=== PATIENT | female | born 1955 | race Caucasian/White ===

== ENCOUNTER 2017-05-07 09:38 | Emergency (ER) | payer OTHER ==
[~2017-05-07] VITALS: Ht 165.1 cm; Wt 56.7 kg
[~2017-05-07 09:38] MED LIST: ACETAMINOPHEN; ALBIPROI INH; ALBU90OI INH; AZIT250 PO; Bactrim 400-801 EACH PO; CLIN150 PO; CODACE30; CODGUAEL PO; DIAZ10 PO; DIAZ5 PO; HYDACE5 PO; HYDCOR2.5C PR; Hydrocodone-Ap1 EA23 PO; IBUPROFEN; NAPR500 PO; OXYC10TA19; OXYC5; PRED20 PO; PROCODE120 PO; PROM25 PO; Prednisone20 MG PO; RXCLIN PO; RXHYDACE PO; SULTRIDS PO; TRAM50; TRAM50 PO; Vibramycin100 MG PO; Zithromax250 MG PO; Zovirax400 MG PO
[2017-05-07] MEDS ORDERED: Prednisone20 MG PO (11:52)
[2017-05-07] MEDS ORDERED: Zithromax250 MG PO (11:52)
[2018-01-15] MEDS ORDERED: ONDA8 PO (11:38)
[2018-01-15] MEDS ORDERED: HYDROCODONE-AC1 EACH PO (11:39)
[2018-01-15] MEDS ORDERED: VARE1 PO (11:40)
[2018-01-15] MEDS ORDERED: LIDOCAINE5 GM TOP (11:40)
== END 2017-05-07 12:16 | disposition home or self-care (01) ==
LOC: ER 09:38
DX: J44.1 Chronic obstructive pulmonary disease with (acute) exacerbation (principal); G89.29 Other chronic pain; M54.9 Dorsalgia, unspecified; F17.200 Nicotine dependence, unspecified, uncomplicated
CPT/HCPCS: 71046; 94640; 94644; 99283

== ENCOUNTER → 2017-05-14 | Outpatient (CLI) | payer OTHER ==
[~2017-05-14] MED LIST changes: +CARBAMIDE15 ML BOTHEARS; +Duoneb 2.5-0.5 M3 ML INH; +HYDROCODONE-AC1 EACH PO; +LIDOCAINE5 GM TOP; +ONDA8 PO; +VARE1 PO
== END ==
LOC: LAB 09:30
DX: J18.1 Lobar pneumonia, unspecified organism (principal)
CPT/HCPCS: 87015; 87116; 87206; 88108

== ENCOUNTER → 2017-07-29 | Outpatient (CLI) | payer OTHER ==
[~2017-07-29] MED LIST changes: -CARBAMIDE15 ML BOTHEARS; -Duoneb 2.5-0.5 M3 ML INH; -HYDROCODONE-AC1 EACH PO; -LIDOCAINE5 GM TOP; -ONDA8 PO; -VARE1 PO
== END ==
LOC: LAB SHORT 13:13 → LAB 13:13
DX: J44.1 Chronic obstructive pulmonary disease with (acute) exacerbation (principal)
CPT/HCPCS: 87070; 87186; 87205

== ENCOUNTER 2017-09-07 13:42 | Emergency (ER) | payer OTHER ==
[~2017-09-07] VITALS: Ht 165.1 cm; Wt 54.4 kg
[2017-09-07] MEDS ORDERED: Prednisone20 MG PO (14:29)
[2017-09-07] MEDS ORDERED: Vibramycin100 MG PO (14:29)
[2017-09-07] MEDS ORDERED: Duoneb 2.5-0.5 M3 ML INH (14:29)
[2017-09-07] MEDS ORDERED: CARBAMIDE15 ML BOTHEARS (14:32)
== END 2017-09-07 15:02 | disposition home or self-care (01) ==
LOC: ER 13:42
DX: J44.1 Chronic obstructive pulmonary disease with (acute) exacerbation (principal); F17.200 Nicotine dependence, unspecified, uncomplicated
CPT/HCPCS: 71046; 94640; 99283-25

== ENCOUNTER 2018-06-29 13:50 | Day surgery (SDC) | payer OTHER ==
[~2018-06-29 13:50] MED LIST changes: +CARBAMIDE15 ML BOTHEARS; +Duoneb 2.5-0.5 M3 ML INH; +HYDROCODONE-AC1 EACH PO; +LIDOCAINE5 GM TOP; +ONDA8 PO; +VARE1 PO
[2018-06-29 16:11] LABS: BASOPHILS ABSOLUTE AUTO 0.02 K/mm3 (0.00-0.23); BASOPHILS PERCENT AUTO 0 % (0-2); EOSINOPHILS ABSOLUTE AUTO 0.02 K/mm3 (0.00-0.68); EOSINOPHILS PERCENT AUTO 0 % (0-6); Hematocrit 38.5 % (33.0-51.0); Hemoglobin 12.1 g/dL (11.5-16.0); IMMATURE GRAN ABSOLUTE AUTO 0.01 K/mm3 (0.00-0.10); IMMATURE GRAN PERCENT AUTO 0 % (0-1); LYMPHOCYTES ABSOLUTE AUTO 1.21 K/mm3 (0.84-5.20); LYMPHOCYTES PERCENT AUTO 27 % (21-46); MONOCYTES ABSOLUTE AUTO 0.24 K/mm3 (0.16-1.47); MONOCYTES PERCENT AUTO 5 % (4-13); Mean Corpuscular HGB 29.4 pg (26.0-34.0); Mean Corpuscular HGB Conc 31.4 g/dL (31.5-36.5); Mean Corpuscular Volume 94 fL (80-100); Mean Platelet Volume 10.7 fL (9.1-12.4); NEUTROPHILS ABSOLUTE AUTO 3.06 K/mm3 (1.96-9.15); NEUTROPHILS PERCENT AUTO 67 % (41-73); Platelet Count 169 K/mm3 (150-400); RDW Coefficient Variation 12.6 % (11.7-14.2); RDW Standard Deviation 43.8 fL (35.1-46.3); Red Blood Cell Count 4.11 M/mm3 (3.80-5.20); White Blood Cell Count 4.56 K/mm3 (4.00-11.30)
[2018-06-29 16:24] LABS: Alanine Aminotransfer (ALT/SGP 17 U/L (12-78); Albumin, Blood 3.7 g/dL (3.4-5.0); Albumin/Globulin Ratio 1.1 (0.8-1.8); Alk Phos 79 U/L (50-136); Anion Gap 4 mmol/L (6-16); Aspartate Aminotrans (AST/SGOT 20 U/L (12-37); Bilirubin, Total 0.2 mg/dL (0.1-1.0); Blood Urea Nitrogen 13 mg/dL (8-24); Bun/Creatinine Ratio 19.2 (12.0-20.0); CO2, Blood 30 mmol/L (21-32); Calcium, Blood 8.7 mg/dL (8.5-10.1); Chloride, Blood 107 mmol/L (98-108); Creatinine, Blood 0.68 mg/dL (0.40-1.00); Globulin, Blood 3.3 g/dL (2.2-4.0); Glomerular Filtration Rate >60 (60-); Glucose, Blood 87 mg/dL (70-99); Potassium, Blood 3.8 mmol/L (3.5-5.5); Sodium, Blood 141 mmol/L (136-145)
== END 2018-06-29 22:57 | disposition home or self-care (01) ==
LOC: ATC 13:50
PROVIDERS: Internal Medicine Hematology & Oncology
DX: C54.8 Malignant neoplasm of overlapping sites of corpus uteri (principal); C77.0 Secondary and unspecified malignant neoplasm of lymph nodes of head, face and neck; Z87.891 Personal history of nicotine dependence; Z79.899 Other long term (current) drug therapy; Z88.0 Allergy status to penicillin
CPT/HCPCS: 36591; 80053; 85025; J1642

== ENCOUNTER → 2020-10-23 | Outpatient (CLI) | payer OTHER ==
[2020-10-24 13:11] LABS: HPV 16 Positive (Negative); HPV 18 Negative (Negative); HPV OTHER HR TYPES Negative (Negative)
== END ==
LOC: LAB SHORT 14:12 → LAB 14:12
PROVIDERS: Family Medicine
DX: Z01.419 Encounter for gynecological examination (general) (routine) without abnormal findings (principal)
CPT/HCPCS: 87624; 87625; G0123

== ENCOUNTER 2021-03-12 12:03 | Emergency (ER) | payer OTHER | END 2021-03-12 13:02 | disposition left against medical advice (07) | LOC: ER 12:03 | DX: Z53.21 Procedure and treatment not carried out due to patient leaving prior to being seen by health care provider (principal) ==

== ENCOUNTER → 2021-07-26 | Outpatient (CLI) | payer OTHER ==
[2021-07-26 13:27] LABS: BASOPHILS ABSOLUTE AUTO 0.04 K/mm3 (0.00-0.23); BASOPHILS PERCENT AUTO 1 % (0-2); EOSINOPHILS ABSOLUTE AUTO 0.04 K/mm3 (0.00-0.68); EOSINOPHILS PERCENT AUTO 1 % (0-6); Hematocrit 46.9 % (33.0-51.0); Hemoglobin 15.1 g/dL (11.5-16.0); IMMATURE GRAN ABSOLUTE AUTO 0.01 K/mm3 (0.00-0.10); IMMATURE GRAN PERCENT AUTO 0 % (0-1); LYMPHOCYTES ABSOLUTE AUTO 1.48 K/mm3 (0.84-5.20); LYMPHOCYTES PERCENT AUTO 25 % (21-46); MONOCYTES ABSOLUTE AUTO 0.27 K/mm3 (0.16-1.47); MONOCYTES PERCENT AUTO 5 % (4-13); Mean Corpuscular HGB 29.3 pg (26.0-34.0); Mean Corpuscular HGB Conc 32.2 g/dL (31.5-36.5); Mean Corpuscular Volume 91 fL (80-100); Mean Platelet Volume 11.1 fL (9.1-12.4); NEUTROPHILS ABSOLUTE AUTO 4.08 K/mm3 (1.96-9.15); NEUTROPHILS PERCENT AUTO 69 % (41-73); Platelet Count 240 K/mm3 (150-400); RDW Coefficient Variation 12.6 % (11.7-14.2); RDW Standard Deviation 41.7 fL (35.1-46.3); Red Blood Cell Count 5.15 M/mm3 (3.80-5.20); White Blood Cell Count 5.92 K/mm3 (4.00-11.30)
[2021-07-26 14:24] LABS: Alanine Aminotransfer (ALT/SGP 20 U/L (12-78); Albumin/Globulin Ratio 0.9 (0.8-1.8); Alk Phos 108 U/L (50-136); Anion Gap 6 mmol/L (6-16); Aspartate Aminotrans (AST/SGOT 24 U/L (12-37); Bilirubin, Total 0.4 mg/dL (0.1-1.0); Blood Urea Nitrogen 13 mg/dL (8-24); Bun/Creatinine Ratio 26.9 (12.0-20.0); CO2, Blood 29 mmol/L (21-32); Calcium, Blood 9.4 mg/dL (8.5-10.1); Chloride, Blood 103 mmol/L (98-108); Cholesterol 187 mg/dL (50-200); Creatinine, Blood 0.48 mg/dL (0.40-1.00); Free Thyroxine 1.06 ng/dL (0.70-1.60); Globulin, Blood 4.5 g/dL (2.2-4.0); Glomerular Filtration Rate 104 (60-); Glucose, Blood 104 mg/dL (70-99); HDL Cholesterol 63 mg/dL (>39); LDL/HDL RATIO 1.6; Low Density Lipoprotein Chol 102 mg/dL (0-110); Potassium, Blood 4.2 mmol/L (3.5-5.5); Sodium, Blood 138 mmol/L (136-145); Total Protein, Blood 8.5 g/dL (6.4-8.2); Triglycerides 108 mg/dL (30-160); Very Low Density Lipoprot Chol 21 mg/dL (6-32)
== END | disposition home or self-care (01) ==
LOC: LAB SHORT 11:53
PROVIDERS: Family Medicine
DX: I10 Essential (primary) hypertension (principal); E78.5 Hyperlipidemia, unspecified
CPT/HCPCS: 80053; 80061; 84439; 84443; 85025

== ENCOUNTER 2022-01-25 09:13 | Observation (INO) | payer OTHER ==
[~2022-01-25] VITALS: Ht 165.1 cm; Wt 42.2 kg
[2022-01-25 11:03] LABS: Source, Urine Clean Catch
[2022-01-25 11:07] LABS: Appearance, Urine Clear (Clear); Blood, Urine 3+ (Neg); Color, Urine Amber (P-Yellow); Glucose Qualitative, Urine Neg (Neg); Ketones, Urine 3+ (Neg); Leukocyte Esterase, Urine 3+ (Neg); Nitrite, Urine Pos (Neg); Protein, Urine 3+ (Neg); Specific Gravity, Urine 1.015 (1.003-1.022); Urobilinogen, Urine 3+ (Normal)
[2022-01-25 11:11] LABS: BASOPHILS ABSOLUTE AUTO 0.06 K/mm3 (0.00-0.23); BASOPHILS PERCENT AUTO 0 % (0-2); EOSINOPHILS ABSOLUTE AUTO 0.01 K/mm3 (0.00-0.68); EOSINOPHILS PERCENT AUTO 0 % (0-6); Hematocrit 41.6 % (33.0-51.0); Hemoglobin 14.1 g/dL (11.5-16.0); IMMATURE GRAN ABSOLUTE AUTO 0.54 K/mm3 (0.00-0.10); IMMATURE GRAN PERCENT AUTO 3 % (0-1); LYMPHOCYTES ABSOLUTE AUTO 1.11 K/mm3 (0.84-5.20); LYMPHOCYTES PERCENT AUTO 5 % (21-46); MONOCYTES ABSOLUTE AUTO 1.06 K/mm3 (0.16-1.47); MONOCYTES PERCENT AUTO 5 % (4-13); Mean Corpuscular HGB 29.5 pg (26.0-34.0); Mean Corpuscular HGB Conc 33.9 g/dL (31.5-36.5); Mean Corpuscular Volume 87 fL (80-100); Mean Platelet Volume 9.2 fL (9.1-12.4); NEUTROPHILS ABSOLUTE AUTO 18.54 K/mm3 (1.96-9.15); NEUTROPHILS PERCENT AUTO 87 % (41-73); Platelet Count 446 K/mm3 (150-400); RDW Coefficient Variation 13.6 % (11.7-14.2); RDW Standard Deviation 43.8 fL (35.1-46.3); Red Blood Cell Count 4.78 M/mm3 (3.80-5.20); White Blood Cell Count 21.32 K/mm3 (4.00-11.30)
[2022-01-25 11:33] LABS: Bilirubin, Urine 2+ (Neg)
[2022-01-25 11:36] LABS: Bacteria Mod /hpf; Squamous Epithelial Cells Few /hpf (Few)
[2022-01-25 13:29] LABS: Albumin, Blood 2.7 g/dL (3.4-5.0); Albumin/Globulin Ratio 0.5 (0.8-1.8); Bun/Creatinine Ratio 32.2 (12.0-20.0); Calcium, Blood 9.7 mg/dL (8.5-10.1); Creatinine, Blood 0.62 mg/dL (0.40-1.00); Globulin, Blood 5.9 g/dL (2.2-4.0); Potassium, Blood 4.1 mmol/L (3.5-5.5); Total Protein, Blood 8.6 g/dL (6.4-8.2)
[2022-01-25] MEDS ORDERED: Ventolin/Prove6.7 GM INH (14:02)
[2022-01-25] MEDS ORDERED: DOXE10 PO (14:02)
[2022-01-25] MEDS ORDERED: DULOXETINE HCL60 M1 PO (14:02)
--- NOTE | 2022-01-25 17:39 | NUR ---
SHIFT SUMMARY PT ADMITTED FROM THE ED TODAY. TWO OF HER SONS WERE AT THE BS. SHE C/O PAIN AND WAS MEDICATED PER THE EMAR. SHE CURRENTLY HAS FLUIDS RUNNING. SHE IS GOING TO BE TRANSFERRED TO ANOTHER FACILITY DUE TO A PROCEDURES NECESSARY THAT CANNOT BE PERFORMED HERE. COVID SWAB COMPLETED. PROVIDER AWARE OF THE SITUATION WELL DR. CONN. THE DATE OF TRANSFER IS STILL UNKNOWN BUT IS IN THE PROCESS AND PT IS AWARE. WILL REPORT TO ONCOMING NURSE.
[2022-01-25 18:00] LABS: Influenza A, PCR NEGATIVE (NEGATIVE); Influenza B, PCR NEGATIVE (NEGATIVE); Resp Syncytial Virus, PCR NEGATIVE (NEGATIVE); SARS-Cov-2 (COVID-19) PCR, MMC NEGATIVE (NEGATIVE)
--- NOTE | 2022-01-25 18:33 | NUR ---
TRANSFER NOTE PT TRANSFERRED TO [facility] VIA [facility]. REPORT GIVEN TO BRANDIE MADSEN AT 181. SHE HAD A SALINE LOCKED IV. NO TELE OR O2. SHE LEFT THE FACILITY AT 183 AND BRANDIE MADSEN, AT [facility] WAS NOTIFIED. REPORT WAS ALSO PROVIDED TO EMS FOR TRANSPORT.
== END 2022-01-25 18:31 | disposition short-term general hospital (02) ==
LOC: ER 09:13 → MEDS 14:14
PROVIDERS: Student in an Organized Health Care Education/Training Program; ADMIT Family Medicine
DX: K80.42 Calculus of bile duct with acute cholecystitis without obstruction (principal); A41.9 Sepsis, unspecified organism; N39.0 Urinary tract infection, site not specified; B95.1 Streptococcus, group B, as the cause of diseases classified elsewhere; D72.829 Elevated white blood cell count, unspecified; E87.1 Hypo-osmolality and hyponatremia; R79.89 Other specified abnormal findings of blood chemistry; J44.9 Chronic obstructive pulmonary disease, unspecified; E44.0 Moderate protein-calorie malnutrition; Z76.0 Encounter for issue of repeat prescription; Z85.038 Personal history of other malignant neoplasm of large intestine; Z85.44 Personal history of malignant neoplasm of other female genital organs; Z79.899 Other long term (current) drug therapy
CPT/HCPCS: 0241U; 36415; 74176; 80053; 81001; 83605; 83690; 85025; 87077; 87086; 87147; 87186; 96376; G0378; J2543; J3010; J7030

== ENCOUNTER → 2022-10-28 | Outpatient (CLI) | payer OTHER ==
[~2022-10-28] MED LIST changes: +DOXE10 PO; +DULOXETINE HCL60 M1 PO; +Ventolin/Prove6.7 GM INH
== END | disposition home or self-care (01) ==
LOC: LAB 15:10 → LAB SHORT 15:10
DX: N39.0 Urinary tract infection, site not specified (principal)
CPT/HCPCS: 87077; 87086; 87147; 87186

== ENCOUNTER → 2022-11-26 | Outpatient (CLI) | payer OTHER | END | disposition home or self-care (01) | LOC: LAB 14:22 → LAB SHORT 14:22 | DX: R82.998 Other abnormal findings in urine (principal) | CPT/HCPCS: 87086 ==

== ENCOUNTER → 2023-01-23 | Outpatient (CLI) | payer OTHER | END | disposition home or self-care (01) | LOC: LAB SHORT 13:33 → LAB 13:33 | DX: N39.0 Urinary tract infection, site not specified (principal) | CPT/HCPCS: 87086 ==

== ENCOUNTER → 2023-03-10 | Outpatient (CLI) | payer OTHER | END | disposition home or self-care (01) | LOC: LAB 11:39 → LAB SHORT 11:39 | DX: N39.0 Urinary tract infection, site not specified (principal) | CPT/HCPCS: 87077; 87086; 87186 ==

== ENCOUNTER → 2023-03-30 | Outpatient (CLI) | payer OTHER | LOC: LAB SHORT 14:44 → LAB 14:44 | DX: N39.0 Urinary tract infection, site not specified (principal) | CPT/HCPCS: 87086 ==

== ENCOUNTER → 2023-08-18 | Outpatient (CLI) | payer OTHER | END | disposition home or self-care (01) | LOC: LAB SHORT 17:58 → LAB 17:58 | DX: I10 Essential (primary) hypertension (principal); R31.0 Gross hematuria | CPT/HCPCS: 87086 ==

== ENCOUNTER 2024-03-04 16:29 | Emergency (ER) | payer OTHER ==
[~2024-03-04] VITALS: Ht 165.1 cm; Wt 39.0 kg
[2024-03-04 22:00] LABS: BASOPHILS ABSOLUTE AUTO 0.04 K/mm3 (0.00-0.23); BASOPHILS PERCENT AUTO 0 % (0-2); EOSINOPHILS ABSOLUTE AUTO 0.05 K/mm3 (0.00-0.68); EOSINOPHILS PERCENT AUTO 1 % (0-6); Hematocrit 40.8 % (33.0-51.0); Hemoglobin 13.7 g/dL (11.5-16.0); IMMATURE GRAN ABSOLUTE AUTO 0.02 K/mm3 (0.00-0.10); IMMATURE GRAN PERCENT AUTO 0 % (0-1); LYMPHOCYTES ABSOLUTE AUTO 1.81 K/mm3 (0.84-5.20); LYMPHOCYTES PERCENT AUTO 20 % (21-46); MONOCYTES ABSOLUTE AUTO 0.58 K/mm3 (0.16-1.47); MONOCYTES PERCENT AUTO 6 % (4-13); Mean Corpuscular HGB 30.8 pg (26.0-34.0); Mean Corpuscular HGB Conc 33.6 g/dL (31.5-36.5); Mean Corpuscular Volume 92 fL (80-100); Mean Platelet Volume 10.1 fL (9.1-12.4); NEUTROPHILS ABSOLUTE AUTO 6.52 K/mm3 (1.96-9.15); NEUTROPHILS PERCENT AUTO 72 % (41-73); Platelet Count 259 K/mm3 (150-400); RDW Coefficient Variation 13.8 % (11.7-14.2); RDW Standard Deviation 46.5 fL (35.1-46.3); Red Blood Cell Count 4.45 M/mm3 (3.80-5.20); White Blood Cell Count 9.02 K/mm3 (4.00-11.30)
[2024-03-04] MEDS ORDERED: Ketorolac Tromethamine 15mg Vial IV ONE (22:15)
[2024-03-04 22:22] LABS: Albumin/Globulin Ratio 0.8 (0.8-1.8); Bilirubin, Total 0.3 mg/dL (0.1-1.0); Bun/Creatinine Ratio 14.6 (12.0-20.0); Calcium, Blood 8.3 mg/dL (8.5-10.1); Creatinine, Blood 0.89 mg/dL (0.40-1.00); Potassium, Blood 2.7 mmol/L (3.5-5.5)
[2024-03-04] MEDS ORDERED: NS 1,000 ML IV SCH (23:20)
[2024-03-04] MEDS ORDERED: Potassium Chl 20MEQ/Water100ML 100 ML IV ONE (23:20)
[2024-03-04] MEDS ORDERED: Potassium Chloride 20 MEQ TabCR PO ONE (23:20)
[2024-03-04] MEDS ORDERED: HYDROcodone 5-APAP 325 TAB PO ONE (23:55)
[2024-03-05] MEDS ORDERED: BISA5EC PO (01:45)
[2024-03-05] MEDS ORDERED: MAGCIT300 PO (01:45)
[2024-03-05] MEDS ORDERED: MINERAL OIL133 M1 PR (01:45)
[2024-03-05] MEDS ORDERED: POTA20PAC PO (01:46)
[2024-03-05] MEDS ORDERED: Adult Glycerin1 EACH PR (01:55)
[2024-03-05 02:00] VITALS: BP 141/79
[2024-03-05] MEDS ORDERED: DOXY100 PO (02:28)
== END 2024-03-05 02:24 | disposition home or self-care (01) ==
LOC: ER 16:29
PROVIDERS: Student in an Organized Health Care Education/Training Program
DX: K83.8 Other specified diseases of biliary tract (principal); K59.00 Constipation, unspecified; E87.6 Hypokalemia; J44.9 Chronic obstructive pulmonary disease, unspecified; F17.210 Nicotine dependence, cigarettes, uncomplicated; Z79.899 Other long term (current) drug therapy
CPT/HCPCS: 71045; 74018; 74177; 80053; 83690; 83880; 85025; 93005; 93010; 96374-59; 96375; 99284-25; A9270; J1885; J3480; J7030; Q9967